=== PATIENT | female | born 1960 | race Caucasian/White ===

== ENCOUNTER 2021-04-23 07:29 | Day surgery (SDC) | payer OTHER ==
[2021-04-17 13:28] LABS: Basophils % 1.2 % (0-1.3); Lymphocytes % 35.6 % (15.3-44.8); MPV 8.9 fL (7.6-11.3); RBC Red Blood Cell Count 4.46 M/uL (3.86-4.86)
[2021-04-17 13:39] LABS: Urine Appearance CLEAR (Clear); Urine Bilirubin NEGATIVE (Negative); Urine Blood NEGATIVE (Negative); Urine Color YELLOW (Yellow); Urine Glucose NEGATIVE (Negative); Urine Protein NEGATIVE (Negative); Urine Urobilinogen 0.2 mg/dL (0.2-1.0)
[2021-04-17 13:40] LABS: Potassium 3.6 mmol/L (3.5-5.1)
[2021-04-17 13:48] LABS: Urine Microscopic Reflex NO UMIC
[2021-04-23] MEDS ORDERED: SCOPOLAMINE HYDROBROMIDE PATCH TD ONE ×2 (08:00→08:07)
[2021-04-23] MEDS ORDERED: Ringers Lactate 1,000 ML IV ONE ×2 (08:07→10:33)
[2021-04-23] MEDS ORDERED: CEFAZOLIN/SWI 2gm 2 GM/20 ML SYR ONE (08:07)
[2021-04-23] MEDS ORDERED: dexAMETHasone 10 MG/ML VIAL ONE (08:19)
[2021-04-23] MEDS ORDERED: KETAMINE HCL 500 MG/5 ML VIAL ONE (08:19)
[2021-04-23] MEDS ORDERED: propofoL 200 MG/20 ML VIAL IV ONE (08:19)
[2021-04-23] MEDS ORDERED: NS 0.9% VIAL 10 ML ONE (08:19)
[2021-04-23] MEDS ORDERED: ONDANSETRON 4 MG/2 ML VIAL ONE (08:19)
[2021-04-23] MEDS ORDERED: LIDOCAINE 1% MPF 5 ML VIAL ONE (08:19)
[2021-04-23] MEDS ORDERED: FENTANYL CITR 250 MCG/5 ML ONE (08:19)
[2021-04-23] MEDS ORDERED: MIDAZOLAM HCL 2 MG/2 ML INJ ONE (08:19)
[2021-04-23] MEDS ORDERED: ROCURONIUM 50 MG/5 ML VIAL IV ONE (08:19)
[2021-04-23] MEDS ORDERED: LIDOCAINE 1% W/EPI 1:100,000 MDV 20 ML VIAL ONE (08:50)
[2021-04-23] MEDS ORDERED: NA CHLORIDE 0.9% 100 ML IV ONE (08:50)
[2021-04-23] MEDS ORDERED: CEFAZOLIN/SWI 1gm 1 GM/10 ML SYR ONE (08:51)
[2021-04-23] MEDS: BUPIVACAINE 0.25% PF 30 ML VIAL ONE ×2 (09:22→09:49)
[2021-04-23] MEDS: VASOPRESSIN 20 UNIT/ML VIAL ONE ×2 (09:59→15:00)
[2021-04-23] MEDS: Ringers Lactate 1,000 ML IV ONE ×4 (11:48→16:05)
[2021-04-23] MEDS ORDERED: KETOROLAC 30 MG/ML INJ ONE (15:08)
[2021-04-23] MEDS ORDERED: MORPHINE 10 MG/ML VIAL ONE (15:29)
[2021-04-23] MEDS ORDERED: MEPERIDINE HCL 25 MG/ML SYR IV PRN (16:26)
[2021-04-23] MEDS ORDERED: ONDANSETRON 4 MG/2 ML VIAL IV PRN (16:26)
[2021-04-23] MEDS ORDERED: ACETAMINOPHEN 500 MG TAB PO PRN (16:26)
[2021-04-23] MEDS ORDERED: HYDROMORPHONE HCL 1 MG/ML INJ IV PRN (16:26)
[2021-04-23] MEDS ORDERED: PROMETHAZINE INJ 25 MG/ML AMP IV PRN (16:26)
--- NOTE | 2021-04-23 16:36 | P.BOP ---
Preoperative diagnosis: pelvic floor prolapse, PMB, perineal body defect Postoperative diagnosis: same Primary procedure: TLH BSO, SCP, recotocele, PB defect repair, cystoscopy Bending Machine Operator: Haleigh Zaidi Estimated blood loss: 50 Specimen: uterus bilateral tubes, ovaries Findings: 0/+3/0/5/mod/8/+1/-1 Anesthesia: General Complications: None Drain(s): Urinary catheter Implants: upsylon Transferred to: Recovery Room
[2021-04-23] MEDS ORDERED: Ringers Lactate 1,000 ML IV SCH (17:00)
[2021-04-23 17:50] VITALS: BMI 30.6
[2021-04-23] MEDS ORDERED: IBUPROFEN 600 MG TAB PO PRN (18:09)
[2021-04-23 19:48] VITALS: O2SAT 96
[2021-04-24 04:58] LABS: Absolute Lymphocytes (CBC) 2.3 K/uL (0.7-4.9); Basophils % 0.3 % (0-1.3); Hematocrit 30.1 % (36.0-45.0); Lymphocytes % 15.6 % (15.3-44.8); MPV 8.5 fL (7.6-11.3); RBC Red Blood Cell Count 3.45 M/uL (3.86-4.86)
[2021-04-24] MEDS ORDERED: lisinopriL 10 MG TAB PO SCH (09:00)
[2021-04-24] MEDS ORDERED: hydroCHLOROthiazide 12.5 MG CAP PO SCH (09:00)
[2021-04-24] MEDS ORDERED: HOME MED 1 EA UNK (Lisinopril/Hydrochlorothiazide [Lisinopril-Hctz 10-12.5 Mg Tab] Tablet) PO SCH (09:00)
[2021-04-24] MEDS ORDERED: HOME MED 1 EA UNK (Calcium Carbonate [Calcium] 600 MG Tablet) PO SCH (09:00)
[2021-04-24] MEDS ORDERED: CALCIUM CARBONATE 500 MG TAB PO SCH (09:00)
[2021-04-24] MEDS ORDERED: VITAMIN D 5,000 UNIT CAP PO SCH (09:00)
[2021-04-24] MEDS ORDERED: ENOXAPARIN 40 MG/0.4 ML SQ SCH (09:00)
[2021-04-24 09:28] VITALS: BP 139/67; TEMP 99.5
--- NOTE | 2021-04-25 06:45 | OP ---
Date of Procedure: 04/23/2021 Surgeon: Regina Smith MD Kettle Worker: Haleigh Mix. Preoperative Diagnoses: Endometrial hyperplasia, pelvic floor prolapse (stage III uterovaginal prola pse), postmenopausal bleeding and perineal body defect. Postoperative Diagnoses: Endometrial hyperplasia, pelvic floor prolapse (stage III uterovaginal prol apse), postmenopausal bleeding and perineal body defect. Procedures Performed: 1.Total laparoscopic hysterectomy with bilateral salpingo-oophorectomy. 2.Sacral colpopexy using Upsylon Y-Mesh. 3.Rectocele repair and perineal body defect repair. 4.Cystoscopy. Anesthesia: General endotracheal. Ebl: 50. Specimens: Uterus, bilateral tubes and ovaries. Complications: No complications. Drains: Clements catheter. Findings: 0+ 105, moderate 8+ 1-1. The Y mesh was sutured with the 9 cm posterior arms, distal kami chment with 2-0 Prolene sutures, and a central V-Loc suture. Then proximal to posterior wall V-Loc s utures. Then, anteriorly a 4.5 cm length attached with the help of 2-0 Prolene sutures distally and the middle distal location. There was V-Loc and tracked proximally and just below the cuff, on both sides anteriorly 2 V-Loc's were placed. V-Loc closed in a continuous running fashion on the entire p eritoneum. Vaginal cuff was closed in 2 layers with a 2-0 V-Loc. Cystoscopy was negative. Indications: The patient is a 60-year-old female who presented with stage III pelvic organ prolapse. Uterovaginal examination showed apical anterior defect to be most significant. However, posterior defect also was present. Endometrial evaluation with transvaginal ultrasound showed thickened endome trium and this was biopsied. No atypia. There was significant amount of tissue growth in the uterin e cavity. We discussed about the options of both laparoscopic repair and vaginal repairs for prolaps e including options for hysterectomy and laparoscopic or vaginal. Discussed about the laparoscopic c olpopexy that could be done along with this. The patient was agreeable to it. After considering all the benefits and risks of the procedure, she was consented and brought to the OR. She also had urodynamic testing, where there was no evidence of any leaks. Then, the patient was als o completely symptomatic and the closure pressures were high, so we counseled the patient that there is no indication to perform a mid urethral sling procedure, and if there was leakage, subsequently th at would be addressed at this time. Patient understood this completely and she was consented and khadra en back to the OR. Preoperatively, consent was reviewed and then the patient was taken back. 2 g of Ancef were given. Abdomen, vulva, vagina, and perineum were prepped and draped in a sterile fashion , all the way from the face to the very bottom. After general anesthesia, Clements was placed to drain the bladder and attached for retrograde filling. A large VCare was fixed in place due to size of the cervix. A 1 cm infraumbilical incision was made with a scalpel using the open laparoscopy technique. Fascia was incised and cut. Beckie introduced. Site of entry checked after insufflation was normal. Then, two 8 ports were placed in the left lower quadrant and right lower quadrant. Then, 7 suprapubic por t was placed under direct vision. Later on, the bowel was sewed. The epiploicae of the bowel were s ewed for a good retraction superiorly in the left upper quadrant. Later, a 5 port was placed here an d then the suture definitely remained through the same trocar site. After placing the patient in and the sigmoid colon was retracted laterally and superiorly, the sacral promontory appeared to be unremarkable and started the hysterectomy. Paraovarian dissect ion was performed in the peritoneum. Pedicle was raised and the infundibulopelvic ligament was cut a fter cautery with the help of the LigaSure. Then, dissection performed all the way to the left uteri ne vessels, taking the broad ligament consistently, and once at the cuff, the peritoneum was opened u p anteriorly and posteriorly, then went on the opposite side. Similarly, the ovary was detached from the lateral aspect and then dissection was performed all the way towards the tube. Round ligament w as taken down and the broad ligament was opened up anteriorly, connected to the bladder flap posterio rly, taken down to the level of the VCare cup and this was taken down with the help of the LigaSure. The circumferential vessels on the left side were also taken down. Cardinal ligaments or anything t hat was soft to the hand was taken down. Circumferential colpotomy was performed with a monopolar ho ok blade and the specimen was pulled out through the vagina. The vaginal closure was performed after thorough irrigation and suction, securing bleeders with a 2-0 V-Loc in two layers, one in the vaginal epithelium, subepithelial tissues, and the second to imbrica te the first suture, which we had done a very good job. Then, the anterior vaginal wall was retracted with the help of the round cylindrical manipulator as w ell as the from the Upsylon mesh. Once the incision was made on the prevesical space, the n dissection was performed. Dissection was performed with the help of cold scissors, laparoscopicall y taken down the bladder all the way to the level of the bladder neck. The measurement went about 4. 5 cm from the apex and this appeared to be placing given the calculation of the length of the uterus and all the vaginal tissue. Once the dissection anteriorly was conducted, opened up laterally as well, making sure that the was seen. Posteriorly, peritoneum was incised and posterior wall was dissected free from the r ectum as it was dropped, then the promontory incision was made with the help of scissors, and the sci ssors was used to open the rest of the peritoneum all the way to the level connecting to the posterio r cul-de-sac. Then, the presacral plexus was securely preserved. The presacral space was dissected carefully layer by layer cauterizing the presacral vessels and the neurovascular bundles. These were retracted to the left and then onto the right access was pulled over and the loose connec tive tissue was incised with the help of scissors. Once the posterior dissection was complete and th e vaginal wall was well exposed, then the rectum was dissected down. The mesh was trimmed 9 cm poste riorly and 4.5 to 5 cm anteriorly, because I wanted to leave 1 cm of the rim between the apex and the wire of crotch of the mesh. So, the 9 cm mesh posteriorly was anchored in the center distal aspect with the help of 2-0 V-Loc, then 2 Prolene sutures of the distal lateral length and 2-0 V-Loc was hammad maikel proximally in the posterior wall to hold the mesh in place. Then, proceeded with the fixation of the arm to the sacrum, this was tensioned appropriately and 6 pins were placed from the ProTack, exc ellent support, then went back down and anteriorly rolled the mesh out and 2 distal Prolene sutures w ere placed first and then put a central V-Loc and then 2 distally V-Loc's to position and hold the me sh in place. After the first 2 Prolene's, pelvic exam was performed with a satisfactory elevation of the anterior vaginal wall as well as the apex, not too tight, and so that was left intact. Once all the suturing was done, the incised peritoneum was closed from the top to the bottom with the help of 2-0 V-Loc in a continuous running fashion. A transverse closure was also performed in the a nterior and posterior peritoneum. No evidence of electrical, mechanical, or thermal injury to the ureters or the bowel or the bladder. After thorough irrigation was performed, all the trocars were removed under direct vision. Fascia c losed at the umbilicus with 0 Vicryl suture and tack and suprapubic 10 port closed with the help of s imple 0 Vicryl stitch. All skin incisions with interrupted 4-0 Vicryl. Rectocele repair was performed after the Clements was removed and cystoscopy was performed. Both ureter ic orifices had strong jets of urine from them. No evidence of any trauma to the bladder. Bladder w as drained and Clements was replaced. The remnants of the hymen were held with 2 Allis clamps. Dilute vasopressin was injected in the midl ine one-third of the posterior vaginal wall, below the level of the mesh. The mesh could be easily p alpable in the distal stitches and then went ahead and a james-shaped incision was made with the he lp of the Bovie as well as the scalpel. The vaginal epithelium was denuded and lower 1/3rd dissectio n was performed the underlying posterior rectovaginal septum from the vaginal epithelium o n both sides, all the way to the level of the graft and all the way down to the perineal body which w as weak. The perineal body was incised in the midline and dissected free, so that the lateral aspect s of the deep transverse perineum to be exposed, was now planning on doing a levatorplasty. So, 2-0 PDS sutures were taken from each aspect to plicate the connective tissue as there was no site-specifi c defect. There was a general thinning of the connective tissue. Once this was done and the suture was tied, 2-0 Vicryl was used to rebuild the perineal body using the rectovaginal finger, was able to place 3 sutures interruptedly and tied. Then, the PDS attached to the perineal body and taken back up and closed. The vaginal epithelium was slightly trimmed and closed with the help of a 2-0 Vicryl in a continuous running locked fashion. A 3-0 Monocryl was used in the perineum to reconstruct fat a nd closed with the same suture. The rectal exam was negative. Instrument, needle, and sponge counts were correct. EBL was less than 100. She was recovered from anesthesia and taken to PACU in stable condition. Plan was to keep her overnight with Clements in place and a voiding trial in the morning. RICCO/GARLAND Voice ID: [id number] Report ID: [id number]
== END 2021-04-24 10:45 | disposition home or self-care (01) ==
LOC: PRE 07:29 → 2ND-WC 16:54 → OR 04-24 10:45
PROVIDERS: ATTEND Obstetrics & Gynecology
PROC: 0UT24ZZ Resection of Bilateral Ovaries, Percutaneous Endoscopic Approach (ICD-10-PCS; 2021-04-23)
PROC: 0UT74ZZ Resection of Bilateral Fallopian Tubes, Percutaneous Endoscopic Approach (ICD-10-PCS; 2021-04-23)
PROC: 0USG7ZZ Reposition Vagina, Via Natural or Artificial Opening (ICD-10-PCS; 2021-04-23)
PROC: 0JQC0ZZ Repair Pelvic Region Subcutaneous Tissue and Fascia, Open Approach (ICD-10-PCS; 2021-04-23)
PROC: 0HQ9XZZ Repair Perineum Skin, External Approach (ICD-10-PCS; 2021-04-23)
PROC: 0UT94ZZ Resection of Uterus, Percutaneous Endoscopic Approach (ICD-10-PCS; principal; 2021-04-23 08:30)
DX: D25.2 Subserosal leiomyoma of uterus (principal); N81.11 Cystocele, midline; N95.2 Postmenopausal atrophic vaginitis; N85.00 Endometrial hyperplasia, unspecified; K59.00 Constipation, unspecified; N95.0 Postmenopausal bleeding; N88.8 Other specified noninflammatory disorders of cervix uteri; Z20.822 Contact with and (suspected) exposure to COVID-19
CPT/HCPCS: 85025 ×2; 80048; 36415 ×2; 86900; 86850; 85610; 86901; 88307; 81003; 94010 ×2; 58571; 57283; 57250; U0003; J2704; J2250; J3010; J1100; J0690 ×2; J7120 ×6; J2405; J1650

== ENCOUNTER 2021-07-01 10:36 | Day surgery (SDC) | payer OTHER ==
[2021-07-01] MEDS ORDERED: Ringers Lactate 1,000 ML IV ONE (10:54)
[2021-07-01] MEDS ORDERED: SCOPOLAMINE HYDROBROMIDE PATCH TD ONE ×2 (11:00→11:12)
[2021-07-01] MEDS ORDERED: MIDAZOLAM HCL 2 MG/2 ML INJ ONE (11:29)
[2021-07-01] MEDS ORDERED: dexAMETHasone 10 MG/ML VIAL ONE (11:29)
[2021-07-01] MEDS ORDERED: LIDOCAINE 2% MPF 5 ML VIAL ONE (11:29)
[2021-07-01] MEDS ORDERED: FENTANYL CITR 100 MCG/2 ML ONE (11:29)
[2021-07-01] MEDS ORDERED: propofoL 200 MG/20 ML VIAL IV ONE (11:29)
[2021-07-01] MEDS ORDERED: ONDANSETRON 4 MG/2 ML VIAL ONE (11:31)
[2021-07-01] MEDS: CEFAZOLIN/NS 1gm 1 GM/50 ML BAG ONE ×2 (11:47→13:25)
[2021-07-01] MEDS ORDERED: LIDOCAINE 1% W/EPI 1:100,000 MDV 20 ML VIAL ONE (11:55)
[2021-07-01] MEDS ORDERED: NA CHLORIDE 0.9% 50 ML ONE (11:55)
[2021-07-01] MEDS ORDERED: CEFAZOLIN SODIUM 1 GM/VIAL ONE (11:55)
[2021-07-01] MEDS: VASOPRESSIN 20 UNIT/ML VIAL ONE ×3 (12:10→13:36)
[2021-07-01] MEDS ORDERED: KETOROLAC 30 MG/ML INJ ONE (13:56)
[2021-07-01] MEDS ORDERED: MEPERIDINE HCL 25 MG/ML SYR IM PRN (14:17)
[2021-07-01] MEDS ORDERED: IBUPROFEN 200 MG TAB PO PRN (14:17)
[2021-07-01] MEDS ORDERED: PROMETHAZINE INJ 25 MG/ML AMP IV PRN (14:17)
--- NOTE | 2021-07-01 14:23 | P.BOP ---
Preoperative diagnosis: KRISTIN, perineal scar Postoperative diagnosis: same Primary procedure: TVT-O (Mid urethral sling) cystoscopy, perineal scar revision Morgue Keeper: Haleigh Zaidi Estimated blood loss: 50 Specimen: none Findings: hypermobile urethra, cysto neg Anesthesia: General Complications: None Drain(s): Urinary catheter Implants: TVT-O Transferred to: Recovery Room Condition: Good
[2021-07-01 14:41] VITALS: TEMP 98.2; O2SAT 97
[2021-07-01] MEDS ORDERED: IBUPROFEN 400 MG TAB ONE (15:38)
[2021-07-01] MEDS ORDERED: IBUPROFEN 200 MG TAB PO ONE (15:38)
--- NOTE | 2021-07-01 15:41 | OP ---
Date of Procedure: 07/01/2021 Surgeon: Regina Smith MD Protection Manager: Haleigh Mix. Preoperative Diagnoses: Stress urinary incontinence, perineal scar and discomfort. Postoperative Diagnoses: Stress urinary incontinence, perineal scar and discomfort. Procedures Performed: Midurethral sling through the transobturator approach (TVT-O), cystoscopy, and perineal scar revision. Estimated Blood Loss: 50. Specimens: No specimens. Complications: No complications. Drains: Clements catheter. Findings: Hypermobile urethra. Sacrocolpopexy scar has been healing well and the prolapse was well suspended ; however, a slightly lower at -2. This is POP-Q with unremarkable. On cystoscopy, bladder and urethra free from any foreign body, trauma or masses. Condition: Good. Implant: TVT-O. Indications: The patient is a 61-year-old female, who had underwent sacrocolpopexy about 9 weeks ago for prolapse. Preoperative testing was negative for occult stress urinary incontinence. She was at that time completely asymptomatic from KRISTIN as well. Postoperatively, she noted stress incontinence which even at 6 weeks postop has not improved, not only that it was impacting her daily activities of living significantly with the leakage and wearing protections. The patient decided to fix this. Damien beasley did understand even preoperatively that there is an 80% chance that she could have overt stress uri nary incontinence despite testing negative preoperatively on urodynamics and being asymptomatic, so s he was consented and brought to the OR. Discussed about midurethral sling, cystoscopy complications including retention, revision of the scar, groin pain and dyspareunia were reviewed besides bleeding, infection and injury to the urethra and bladder. The patient was then consented and brought to the OR. A 1 g of Ancef was given. SCDs were started. Perineal scar was palpable and was causing discom fort and there was also a knot that she was able to palpate in the posterior wall, which she wanted t o get better from. Procedure In Detail: After informed consent was verified, she was taken back to OR and placed in sup ine fashion on the table. General anesthesia was given. She was placed in a dorsal lithotomy positi on using Jonnie stirrups. Vulva, vagina, and perineum prepped and draped in a sterile fashion, and mi durethral area was picked up with the help of 2 Allis clamps. A 16-Taiwanese Clements was placed to drain the bladder. Once this was done, it was clamped with a Parvin and retracted superiorly. Midurethral area was identified and suburethral injection was given with dilute vasopressin. A total of 15 cc wa s given in the center and on both sides going to ipsilateral and the pubic ramus. Then, a 1 cm incis ion made in the midurethral area with the help of a 15 blade. Dissection carried to the opposite luis manuel e at a 45-degree angle to the horizontal and vertical planes hugging the inferior pubic ramus, making sure that I was not too close to the vaginal epithelium. The dissection was performed. Once I melecio ed through the obturator space, then this was widened and pulled out to expand the tract. Similar di ssection was performed on the opposite side without any problems. Wing guide was placed, spike was p assed. Plastic sheath was cut out and mesh and sheaths were clamped, then opposite side was done as well left than the right in a similar fashion and once both plastic spikes were out, they were held w ith Parvin clamps. Plastic dilator was cut. Mesh in the plastic sheaths was held in place. Tensioni ng was done with the help of Metzenbaum scissors right underneath the urethra. The plastic sheaths w ere pulled out. Scissors were removed making sure that the graft was not over tensioned or under ten danika. Once this was done, irrigation with antibiotic solution was done. Then, the extra length of t he mesh was cut at the groins and the skin pucker loosened up. These were clean and Dermabond was pl aced after irrigating with Ancef solution at the level of the mesh. The epithelial closure was done with the help of a 3-0 Vicryl in a continuous running locked fashion making sure the blood supply was not compromised. Once this was done, Clements was removed. Cystoscopy was performed with a 30-degree lens, 17-Taiwanese sheath and normal saline. Cystourethroscopy was performed without any problems. No evidence of any trauma or foreign body like the mesh or masses were seen. Trigone area above the tri gone dome, both lateral wells, urethra were all visualized. Bladder was drained out. Clements was repl aced. Attention directed to the posterior vaginal wall where the skin tag on the vestibule was injected wit h dilute lidocaine and then excised. Then, buried [id number] was placed to reapproximate the ed ges well and then another small area of skin tag was seen and this was also excised and did not need a suture. Then, monofilament suture was sewn in the posterior wall and this was trimmed and removed. There was excellent closure and sufficient revision. Instrument, needle, and sponge counts were co rrect. The patient was taken from anesthesia and taken to PACU in stable condition. EBL 50. She wi ll have a voiding trial before she leaves and she will come back in a week. RICCO/GARLAND Voice ID: [id number] Report ID: [id number]
[2021-07-01 17:05] VITALS: BP 145/67
== END 2021-07-01 16:50 | disposition home or self-care (01) ==
LOC: OR 10:36
PROVIDERS: ATTEND Obstetrics & Gynecology
PROC: 0HB9XZZ Excision of Perineum Skin, External Approach (ICD-10-PCS; 2021-07-01)
PROC: 0TSD0ZZ Reposition Urethra, Open Approach (ICD-10-PCS; principal; 2021-07-01 12:00)
DX: N39.3 Stress incontinence (female) (male) (principal); N18.2 Chronic kidney disease, stage 2 (mild); L90.5 Scar conditions and fibrosis of skin; Z20.822 Contact with and (suspected) exposure to COVID-19
CPT/HCPCS: 57288; 11421; U0002; J2704; J2250; J3010; J1100; J0690 ×2; J7120; J2405